=== PATIENT | female | born 1940 | race Caucasian/White ===

== ENCOUNTER 2018-04-21 13:41 | Emergency (ER) | payer OTHER ==
[~2018-04-21] VITALS: Ht 162.6 cm; Wt 70.8 kg
[2018-04-21 13:55] VITALS: Ht 162.6 cm; Wt 70.8 kg
[2018-04-21 14:40] LABS: CALCIUM 9.1 mg/dL (8.5-10.1); CHLORIDE SERUM 99 mmol/L (98-107); CREATININE SERUM 1.1 mg/dL (0.6-1.0); GLUCOSE SERUM 218 mg/dL (74-106); POTASSIUM SERUM 3.4 mmol/L (3.5-5.1); SODIUM SERUM 139 mmol/L (136-145)
[2018-04-21 14:45] LABS: ALBUMIN 3.5 g/dL (3.4-5.0); ALKALINE PHOSPHATASE 96 U/L (46-116); ALT/SGPT 21 U/L (14-59); AST/SGOT 14 U/L (15-37); BILIRUBIN TOTAL 0.4 mg/dL (0.20-1.00); CHOLESTEROL 139 mg/dL (<200); HDL CHOLESTEROL 54 mg/dL (40-60); MAGNESIUM 1.4 mg/dL (1.8-2.4); PHOSPHOROUS 3.5 mg/dL (2.5-4.9); TOTAL PROTEIN, SERUM 7.7 g/dL (6.4-8.2)
[2018-04-21 14:52] LABS: BASOPHIL % 0.6 % (0-2); PLATELET COUNT 271 x10^3mcL (130-400)
[2018-04-21 14:55] LABS: RED CELL DISTRIBUTION WIDTH 15.3 % (11.5-14.5)
[2018-04-21 21:24] VITALS: BP 172/76
== END 2018-04-21 21:22 | disposition short-term general hospital (02) ==
LOC: ED 13:41
PROVIDERS: Emergency Medicine
DX: S06.6X0A Traumatic subarachnoid hemorrhage without loss of consciousness, initial encounter (principal); S80.02XA Contusion of left knee, initial encounter; S51.802A Unspecified open wound of left forearm, initial encounter; W01.0XXA Fall on same level from slipping, tripping and stumbling without subsequent striking against object, initial encounter; Y93.89 Activity, other specified; Y92.89 Other specified places as the place of occurrence of the external cause; Y99.8 Other external cause status
CPT/HCPCS: 90715; J2060; J7040; P9059